=== PATIENT | male | born 2005 | race Caucasian/White ===

== ENCOUNTER 2024-08-06 06:01 | Emergency (ER) | payer SELFPAY ==
[~2024-08-06] VITALS: Ht 177.8 cm; Wt 94.4 kg
[2024-08-06 06:09] VITALS: BP 132/76; PULSE 58; RESP 18; TEMP 97.8; O2SAT 99
== END 2024-08-06 07:20 | disposition left against medical advice (07) ==
LOC: ER 06:03
DX: K08.89 Other specified disorders of teeth and supporting structures (principal); Z53.21 Procedure and treatment not carried out due to patient leaving prior to being seen by health care provider